=== PATIENT | male | born 2000 | race Caucasian/White ===

== ENCOUNTER 2023-05-26 18:44 | Emergency (ER) | payer MEDICAID ==
[~2023-05-26] VITALS: Ht 172.7 cm; Wt 115.2 kg
[2023-05-26] MEDS ORDERED: VIBRAMYCIN HYC100 MG PO (19:22)
== END 2023-05-26 20:12 | disposition home or self-care (01) ==
LOC: ED 18:44
DX: L08.9 Local infection of the skin and subcutaneous tissue, unspecified (principal); Z88.0 Allergy status to penicillin